=== PATIENT | female | born 1975 | race African-American/Black ===

== ENCOUNTER 2017-10-31 13:18 | Emergency (ER) | payer BC, MEDICAID ==
[~2017-10-31] VITALS: Ht 172.7 cm; Wt 81.2 kg
--- NOTE | 2017-10-31 13:46 | NUR ---
L SIDED FLANK PAIN SINCE YESTERDAY.
[2017-10-31] MEDS ORDERED: ACETAMINOPHEN ES 500 MG TABLET PO ONE (14:00)
[2017-10-31] MEDS ORDERED: IV NS 0.9% 1,000 ML BAG IV ONE (14:00)
[2017-10-31] MEDS ORDERED: DEXAMETHASONE SOD PHOSPHATE 10 MG/ML VIAL IV ONE (14:00)
[2017-10-31] MEDS ORDERED: KETOROLAC TROMETHAMINE INJ 30 MG/ML VIAL IV ONE (14:00)
[2017-10-31] MEDS ORDERED: PROCHLORPERAZINE EDISYLATE 10 MG/2 ML VIAL IVP ONE (14:00)
[2017-10-31 14:04] LABS: APPEARANCE,URINE Clear (CLEAR); BILIRUBIN,URINE Negative (NEGATIVE); BLOOD, URINE Negative Ery/uL (NEGATIVE); COLOR,URINE Yellow (YELLOW); KETONES,URINE Negative (NEGATIVE); LEUKOCYTE ESTERASE ,URINE Negative (NEGATIVE); NITRITE, URINE Negative (NEGATIVE); PROTEIN,URINE Negative (NEGATIVE); UGLUCOSE Negative (NEGATIVE); UROBILINOGEN,URINE 0.2 EU/dL (0.2)
[2017-10-31] MEDS ORDERED: KETOROLAC TROMETHAMINE 15 MG/ML VIAL ONE (14:19)
[2017-10-31] MEDS ORDERED: DEXAMETHASONE SOD PHOSPHATE 10 MG/ML VIAL ONE (14:19)
[2017-10-31] MEDS ORDERED: ACETAMINOPHEN ES 500 MG TABLET ONE (14:19)
[2017-10-31] MEDS ORDERED: PROCHLORPERAZINE EDISYLATE 10 MG/2 ML VIAL ONE (14:19)
[2017-10-31 14:21] LABS: BASOPHILS % (AUTO) 0.3 % (0.0-2.0); EOSINOPHILS # (AUTO) 0.1 /CMM (0.0-0.7); HEMATOCRIT 41 % (33-45); HEMOGLOBIN 13.5 g/dL (11.5-14.8); LYMPHOCYTES # (AUTO) 1.1 /CMM (0.8-4.8); LYMPHOCYTES % (AUTO) 22.5 % (20.0-44.0); MEAN CORPUSCULAR HEMOGLOBIN 30 PG (26.0-33.0); MEAN CORPUSCULAR HGB CONC 33 g/dl (31.0-36.0); MEAN CORPUSCULAR VOLUME 90 fL (82-100); MONOCYTES # (AUTO) 0.5 /CMM (0.1-1.30); MONOCYTES % (AUTO) 9.6 % (2.0-12.0); NEUTROPHILS # (AUTO) 3.2 /CMM (1.8-8.9); NEUTROPHILS % (AUTO) 65.6 % (43.0-81.0); PLATELET COUNT (AUTO) 166 /CMM (150-450); RDW COEFFICIENT OF VARIATION 16.6 (11.5-15.0); RED BLOOD CELL COUNT(AUTO) 4.56 MIL/uL (4.0-5.2); WHITE BLOOD COUNT (AUTO) 4.9 K/uL (4.3-11.0)
[2017-10-31 14:35] LABS: CALCIUM, SERUM 8.8 mg/dL (8.5-10.1); CREATININE 0.8 mg/dL (0.6-1.3); POTASSIUM 4.5 mmol/L (3.5-5.1)
[2017-10-31 14:41] LABS: ALBUMIN 3.5 g/dL (3.4-5.0); BILIRUBIN,TOTAL 0.2 mg/dL (0.2-1.0); TOTAL PROTEIN, SERUM 6.9 g/dL (6.4-8.2)
--- NOTE | 2017-10-31 15:45 | NUR ---
IV removed. Catheter intact and site benign. Pressure and 4x4 applied to site. No bleeding noted.
--- NOTE | 2017-10-31 15:45 | NUR ---
Patient discharged to home in stable condition. Written and verbal after care instructions given. Patient verbalizes understanding of instruction.
[2017-10-31 15:46] VITALS: BP 97/52
== END 2017-10-31 16:23 | disposition home or self-care (01) ==
LOC: ER 13:19
DX: G43.909 Migraine, unspecified, not intractable, without status migrainosus (principal); R10.9 Unspecified abdominal pain; F41.9 Anxiety disorder, unspecified; Z90.710 Acquired absence of both cervix and uterus
CPT/HCPCS: 36415; 80048; 80076; 81001; 83690; 85025; 96361; 96374; 96375; 99284; A4606; J0780; J1100; J1885; J7030; Z7610; 81000-TC

== ENCOUNTER 2017-12-13 16:45 | Emergency (ER) | payer BC, MEDICAID ==
[~2017-12-13] VITALS: Ht 165.1 cm; Wt 613.7 kg
[2017-12-13] MEDS ORDERED: PREDNISONE 20 MG TABLET (16:54)
[2017-12-13] MEDS ORDERED: VIRTUSSIN AC (16:54)
[2017-12-13] MEDS ORDERED: HYDROCO/APAP TAB 5-325MG (16:54)
[2017-12-13] MEDS ORDERED: FLUTICASONE SPR 50MCG (16:54)
[2017-12-13] MEDS ORDERED: QUETIAPINE 25 MG (16:54)
[2017-12-13] MEDS ORDERED: HYDROXYZINE 50 MG (16:54)
[2017-12-13] MEDS ORDERED: TOPAMAX 100 MG (16:54)
[2017-12-13] MEDS ORDERED: MORPHINE SULFATE INJ 2 MG/ML DISP.SYRIN IV ONE (17:30)
[2017-12-13] MEDS ORDERED: IV NS 0.9% 1,000 ML IV ONE (17:30)
--- NOTE | 2017-12-13 17:30 | NUR ---
PT TO ED ROOM 03. MIGRAINE HEADACHE. A/A/O. CHANGED TO GOWN. SIDE RAISL UP. HOB ELEVATED. CONNECTED TO MONITOR. AWAITING EVALUATION BY ER PROVIDER.
[2017-12-13] MEDS ORDERED: MORPHINE SULFATE INJ 4 MG/ML DISP.SYRIN ONE (17:41)
[2017-12-13] MEDS ORDERED: METOCLOPRAMIDE HCL 10 MG/2 ML VIAL ONE (17:41)
[2017-12-13] MEDS: METOCLOPRAMIDE HCL 10 MG/2 ML VIAL IV ONE ×2 (17:45→17:46)
--- NOTE | 2017-12-13 18:33 | NUR ---
Patient is resting comfortably in bed with eyes closed. Easily aroused. VSS
[2017-12-13] MEDS ORDERED: HYDROMORPHONE 1 MG/1 ML DISP.SYRIN IV ONE (19:00)
[2017-12-13] MEDS ORDERED: HYDROMORPHONE INJ 0.5 MG/0.5 ML SYRINGE ONE (19:06)
--- NOTE | 2017-12-13 19:19 | NUR ---
RECEIVED REPORT FROM LILI CHEN FOR JOSIAS
--- NOTE | 2017-12-13 20:17 | NUR ---
IV removed. Catheter intact and site benign. Pressure and 4x4 applied to site. No bleeding noted. Patient discharged to home in stable condition. Written and verbal after care instructions given. Patient verbalizes understanding of instruction. ambulatory with a steady gait
[2017-12-13 20:18] VITALS: BP 116/68
== END 2017-12-13 20:18 | disposition home or self-care (01) ==
LOC: ER 16:46
DX: G43.909 Migraine, unspecified, not intractable, without status migrainosus (principal); F41.9 Anxiety disorder, unspecified; G89.29 Other chronic pain; Z90.710 Acquired absence of both cervix and uterus
CPT/HCPCS: A4606; J2270; J2765; J7030; Z7610

== ENCOUNTER 2018-09-06 10:36 | Inpatient (IN) | payer BC, OTHER ==
[~2018-09-06] VITALS: Ht 165.1 cm; Wt 97.5 kg
[~2018-09-06 10:36] MED LIST: FLUTICASONE SPR 50MCG; HYDROCO/APAP TAB 5-325MG; HYDROXYZINE 50 MG; PREDNISONE 20 MG TABLET; QUETIAPINE 25 MG; TOPAMAX 100 MG; VIRTUSSIN AC
[2018-09-06] MEDS ORDERED: LORAZEPAM 1 MG TABLET ONE (10:48)
[2018-09-06] MEDS ORDERED: IBUPROFEN 400 MG TABLET ONE (10:48)
--- NOTE | 2018-09-06 10:50 | NUR ---
PT BIB A, "HAD A SEIZURE AT WORK". HX OF SEIZURES VERBALIZED BY PT. AOX4, NO ACUTE DISTRESS AT THIS TIME. PT TALKTIVE WITH STAFF. NO SOB/PAIN NOTED. WILL CONTINUE TO MONITOR.
[2018-09-06] MEDS ORDERED: IBUPROFEN 400 MG TABLET PO ONE (11:00)
[2018-09-06] MEDS ORDERED: LORAZEPAM 1 MG TABLET PO ONE (11:00)
--- NOTE | 2018-09-06 11:05 | NUR ---
WITNESSED ABSENCE SEIZURE. PT WAS TALKING TO STAFF AND BECAME UNRESPONSIVE FOR ABOUT 30 SECONDS, NOW APPEARS POSTICTAL. IV LINE ESTABLISHED AND DR DURAN REASSESSED HER AT THE BEDSIDE.
--- NOTE | 2018-09-06 11:15 | NUR ---
PER PT REQUEST, NOTIFIED BOYFRIEND MONIK THAT PT IS IN ER. HE STATES HE WILL COME VISIT.
[2018-09-06] MEDS ORDERED: KEPPRA 1000 MG in IV NS 100 ML IV ONE (11:30)
[2018-09-06] MEDS ORDERED: IV NS 0.9% 1,000 ML BAG IV ONE (11:30)
[2018-09-06 11:34] LABS: BASOPHILS % (AUTO) 0.2 % (0.0-2.0); EOSINOPHILS % (AUTO) 4.1 % (0.0-6.0); HEMATOCRIT 36 % (33-45); LYMPHOCYTES # (AUTO) 1.3 /CMM (0.8-4.8); LYMPHOCYTES % (AUTO) 23.8 % (20.0-44.0); MEAN CORPUSCULAR HGB CONC 33 g/dl (31.0-36.0); MEAN CORPUSCULAR VOLUME 93 fL (82-100); MONOCYTES # (AUTO) 0.6 /CMM (0.1-1.30); MONOCYTES % (AUTO) 10.6 % (2.0-12.0); NEUTROPHILS # (AUTO) 3.2 /CMM (1.8-8.9); NEUTROPHILS % (AUTO) 61.3 % (43.0-81.0); PLATELET COUNT (AUTO) 203 /CMM (150-450); WHITE BLOOD COUNT (AUTO) 5.3 K/uL (4.3-11.0)
[2018-09-06 11:46] LABS: CALCIUM, SERUM 8.3 mg/dL (8.5-10.1); CARBON DIOXIDE 29 mmol/L (21-32); CHLORIDE 111 mmol/L (98-107); CREATININE 0.8 mg/dL (0.6-1.3); GLUCOSE 89 mg/dL (74-106); POTASSIUM 4.4 mmol/L (3.5-5.1); SODIUM SERUM 144 mmol/L (136-145); UREA NITROGEN, BLOOD 14 mg/dL (7-18)
--- NOTE | 2018-09-06 11:46 | NUR ---
PT TRANSPORTED FOR CT SCAN.
[2018-09-06 11:47] LABS: ALCOHOL, BLOOD < 3 mg/dL (0-0)
[2018-09-06] MEDS ORDERED: IBUP-1955 PO (12:15)
[2018-09-06] MEDS ORDERED: BUSP15TA3 PO (12:15)
[2018-09-06] MEDS ORDERED: CHOL-9 PO (12:15)
[2018-09-06] MEDS ORDERED: TRAZ-214 PO (12:15)
[2018-09-06] MEDS ORDERED: HYDR25TA4 PO (12:15)
[2018-09-06] MEDS ORDERED: AMLO10TA6 PO (12:15)
[2018-09-06] MEDS ORDERED: ACET-2605 PO (12:15)
[2018-09-06] MEDS ORDERED: TOPI100T PO (12:15)
[2018-09-06] MEDS ORDERED: DULO60CA45 PO (12:16)
--- NOTE | 2018-09-06 12:51 | NUR ---
PT REPORTS PAIN AT IV SITE. NO REDNESS NOTED, HOWEVER THE LOCALIZED AREA IS SLIGHTLY SWOLLEN. PAIN UPON SALINER FLUSH. ONLY IV NS WAS INFUSING AT THE TIME THAT PAIN STARTED. WARM COMPRESS APPLIED AND IV REMOVED.
[2018-09-06] MEDS ORDERED: LORAZEPAM INJ 2 MG/ML VIAL ONE (12:59)
[2018-09-06] MEDS ORDERED: LORAZEPAM INJ 2 MG/ML VIAL IV STA (13:02)
--- NOTE | 2018-09-06 13:26 | NUR ---
PAGED LAURNE GRIFFIN FOR ADMIT - VEHICLE CONTROLS ENGINEER GALILEO PIKE
--- NOTE | 2018-09-06 13:55 | NUR ---
REPORT GIVEN TO NEHA PEARSON FOR ADMISSION
--- NOTE | 2018-09-06 14:20 | NUR ---
[facility] VIA ACLS PROTOCOL
[2018-09-06 15:00] VITALS: BP 170/92
[2018-09-06] MEDS ORDERED: ONDANSETRON HCL/PF 4 MG/2 ML VIAL IVP PRN (16:30)
[2018-09-06] MEDS ORDERED: TRAZODONE 50 MG TABLET PO PRN (16:30)
[2018-09-06] MEDS ORDERED: ZOLPIDEM TARTRATE 5 MG TABLET PO PRN (16:30)
[2018-09-06] MEDS ORDERED: Z GUARD REMEDY 2 OZ OINT TP PRN (16:30)
[2018-09-06] MEDS ORDERED: AZITHROMYCIN 250 MG TABLET PO ONE (17:00)
[2018-09-06] MEDS ORDERED: diphenhydrAMINE HCL 50 MG/ML VIAL IV PRN (17:00)
[2018-09-06] MEDS ORDERED: DEXAMETHASONE SOD PHOSPHATE 10 MG/ML VIAL IV ONE (17:00)
[2018-09-06] MEDS: IV NS 0.9% 1,000 ML IV PRN (17:05)
[2018-09-06] MEDS: diphenhydrAMINE HCL 25 MG CAPSULE PO PRN (17:39)
[2018-09-06] MEDS: busPIRone 5 MG TABLET PO SCH (17:39)
[2018-09-06] MEDS: MORPHINE SULFATE INJ 4 MG/ML DISP.SYRIN IV PRN (17:40)
--- NOTE | 2018-09-06 19:00 | NUR ---
RN NOTE RECEIVED PT AT 1430 ON BED AOX3, CO HEADACHE 08/28, SLEEPY, BP ELEVATED GALILEO PIKE NOTIFIED. IV INTACT AND PATENT IN LAC 20 G, ON TELEMETRY SR 65. CALL LIGHT WITHIN REACH, SAFETY MEASURES IN PLACE. SPOKE WITH GALILEO PIKE REGARDING PAIN MANAGEMENT AND ELEVATED BP. PER GALILEO PIKE TO CONTROL HEADACHE WHICH SHOULD ADDRESS THE BP WELL. WILL CARRY OUT ORDERS AND MONITOR PT CLOSELY.
[2018-09-06] MEDS: ACETAMINOPHEN 325 MG TABLET PO PRN (19:13)
[2018-09-06 20:00] VITALS: BP 146/83
--- NOTE | 2018-09-06 20:00 | NUR ---
RN INITIAL NOTES RECEIVED PT IN BED. PATIENT A/A/O X4. ON TELE W/ SINUS RHYTHM, HR 89. RIGHT WRIST IV, INTACT & PATENT W/ DRESSING CDI & IVF INFUSING ORDERED. PT C/O FOR HEADACHE PAIN 06/28. ALL SAFETY MEASURES MAINTAINED, W/ BED ALARM ON. CALL LIGHT WITH IN REACH. WILL CONT TO MONITOR.
[2018-09-06 20:13] LABS: APPEARANCE,URINE CLEAR (CLEAR); BILIRUBIN,URINE NEGATIVE (NEGATIVE); BLOOD, URINE NEGATIVE Ery/uL (NEGATIVE); COLOR,URINE YELLOW (YELLOW); KETONES,URINE NEGATIVE (NEGATIVE); LEUKOCYTE ESTERASE ,URINE NEGATIVE (NEGATIVE); NITRITE, URINE NEGATIVE (NEGATIVE); PROTEIN,URINE NEGATIVE (NEGATIVE); UGLUCOSE NEGATIVE (NEGATIVE); UROBILINOGEN,URINE 0.2 EU/dL (0.2)
[2018-09-06] MEDS: TOPIRAMATE 100 MG TABLET PO SCH (21:25)
[2018-09-06] MEDS: LEVETIRACETAM SOL (5 ML) 100 MG/ML UDC PO SCH (21:25)
--- NOTE | 2018-09-06 22:15 | NUR ---
RN NOTES PT STATED THAT SHE FEELS LIKE SHE IS ABOUT TO HAVE A SEIZURE. MD TYLER NOTIFIED. ONE TIME DOSE OF ATIVAN ORDERED AND GIVEN. PT MOVED TO ANOTHER ROOM PER HER REQUEST FOR QUITE AND COMFORT. PAIN MEDICATION GIVEN ORDERED FOR HEADACHE PAIN. WILL CONT TO CLOSELY MONITOR.
[2018-09-06] MEDS ORDERED: LORAZEPAM INJ 2 MG/ML VIAL IV ONE (22:30)
--- NOTE | 2018-09-06 23:18 | NUR ---
Patient lives locally independently. 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 Her pcp is Dr. Kelsey of [facility] . She plan to return home once d/c Addendum: 09/06/18 at 2319 by NIEVES FRAZIER RN Amended: Links added.
[2018-09-07] VITALS (7 sets, daily range): BP systolic 117–147; BP diastolic 63–85
[2018-09-07] MEDS: diphenhydrAMINE HCL 25 MG CAPSULE PO PRN (03:30)
[2018-09-07] MEDS: IBUPROFEN 600 MG TABLET PO PRN ×3 (03:30→20:01)
[2018-09-07 07:06] LABS: HEMATOCRIT 38 % (33-45); HEMOGLOBIN 12.3 g/dL (11.5-14.8); LYMPHOCYTES # (AUTO) 0.7 /CMM (0.8-4.8); LYMPHOCYTES % (AUTO) 9.8 % (20.0-44.0); MEAN CORPUSCULAR HGB CONC 33 g/dl (31.0-36.0); MEAN CORPUSCULAR VOLUME 97 fL (82-100); MONOCYTES # (AUTO) 0.2 /CMM (0.1-1.30); MONOCYTES % (AUTO) 2.7 % (2.0-12.0); NEUTROPHILS % (AUTO) 87.5 % (43.0-81.0); PLATELET COUNT (AUTO) 191 /CMM (150-450); RED BLOOD CELL COUNT(AUTO) 3.92 MIL/uL (4.0-5.2); WHITE BLOOD COUNT (AUTO) 6.8 K/uL (4.3-11.0)
--- NOTE | 2018-09-07 07:10 | NUR ---
RN CLOSING NOTES NO ACUTE CHANGES WITHIN THE SHIFT. ALL NURSING NEEDS ATTENDED AND MET. ASPIRATION AND SAFETY MEASURES IN PLACE AT ALL TIMES. CALL LIGHT WITHIN REACH AT ALL TIMES. ALL MEDS GIVEN ORDERED. WILL ENDORSE TO AM RN.
--- NOTE | 2018-09-07 07:20 | NUR ---
RANDALL RN INITIAL NOTES RECEIVED REPORT FROM PM NURSE.PT IN BED. PATIENT A/A/O X4. ON TELE W/ SINUS RHYTHM, HR 63 . RIGHT WRIST IV, INTACT & PATENT W/ DRESSING CDI & IVF INFUSING ORDERED.NO SOB NO DISTRESS NOTED.ON RA. ALL SAFETY MEASURES MAINTAINED, W/ BED ALARM ON. CALL LIGHT WITH IN REACH. WILL CONT TO MONITOR.
[2018-09-07 07:24] LABS: CALCIUM, SERUM 8.2 mg/dL (8.5-10.1); MAGNESIUM 1.8 mg/dL (1.8-2.4); PHOSPHORUS 4.3 mg/dL (2.5-4.9); POTASSIUM 3.9 mmol/L (3.5-5.1)
[2018-09-07] MEDS: busPIRone 5 MG TABLET PO SCH ×2 (08:08→17:00)
[2018-09-07] MEDS: LEVETIRACETAM SOL (5 ML) 100 MG/ML UDC PO SCH ×2 (08:08→21:13)
[2018-09-07] MEDS: DULOXETINE HCL 30 MG CAPSULE.DR PO SCH (08:08)
[2018-09-07] MEDS: AMLODIPINE BESYLATE 10 MG TABLET PO SCH (08:09)
[2018-09-07] MEDS: HYDROCHLOROTHIAZIDE 25 MG TABLET PO SCH (08:10)
[2018-09-07] MEDS: MORPHINE SULFATE INJ 4 MG/ML DISP.SYRIN IV PRN ×2 (08:11→15:35)
[2018-09-07] MEDS: VITAMIN D 5000 UNIT PO SCH (09:36)
[2018-09-07] MEDS ORDERED: LORAZEPAM 1 MG TABLET PO ONE (11:00)
--- NOTE | 2018-09-07 13:00 | NUR ---
RN NOTES PATIENT SAID THAT SHE FEELS SHE IS GOING TO GET SEIZURE.LETHARGIC AND FEELING AURA. AWARE.GOT NEW ORDER FOR ATIVANX1.WILL CONTINUE TO MONITOR.
[2018-09-07] MEDS: IV NS 0.9% 1,000 ML IV PRN (15:35)
[2018-09-07] MEDS ORDERED: AZITHROMYCIN 250 MG TABLET PO SCH (17:00)
[2018-09-07] MEDS: AZITHROMYCIN 250 MG TABLET PO SCH (17:00)
--- NOTE | 2018-09-07 17:00 | NUR ---
IT SOFTWARE DEVELOPER NOTES SEEN BY UPDATED ABOUT PATIENT CONDITION.REQUESTED FOR PRN MEDS.GOT NEW ORDERS.
[2018-09-07] MEDS: LORAZEPAM 1 MG TABLET PO PRN (19:10)
--- NOTE | 2018-09-07 19:24 | NUR ---
RN CLOSING NOTES PT IN BED. PATIENT A/A/O X4. ON TELE W/ SINUS RHYTHM, HR 68.RIGHT WRIST IV, INTACT & PATENT W/ DRESSING CDI .NO SOB NO DISTRESS NOTED.ON RA. PATIENT SAID THAT SHE FEELING THAT SHE IS GOING TO GET SEIZURE,GETTING AURA,LETHARGIC.PRN ATIVAN GIVEN.REPORT GIVEN TO PM NURSE AT BEDSIDE.ENDORSED TO PM NURSE FOR JOSIAS.ALL SAFETY MEASURES MAINTAINED, W/ BED ALARM ON. CALL LIGHT WITH IN REACH.
--- NOTE | 2018-09-07 20:30 | NUR ---
RN NOTES RECEIVED IN BED, LETHARGIC, RESPONDING TO SIMPLE QUESTIONS, PER PATIENT HAVING SILENT SEIZURE, SEIZURE PRECAUTION MAINTAINED, KEPT HOB ELEVATED, STAYED WITH PATIENT. AM NURSE GAVE ATIVAN PO, ABLE TO SWALLOW, AFTER SEIZURE, PATIENT CAME BACK TO BASELINE LOC, VS WNL, PER PATIENT, STRENGTH TO UPPER EXTREMITIES CAME BACK, ASSISTED TO BSC WITH CAUTION, VOIDING SPONTANEOUSLY, WILL CONTINUE TO MONITOR, CALL LIGHT WITHIN REACH.
[2018-09-07] MEDS: TOPIRAMATE 100 MG TABLET PO SCH (21:13)
[2018-09-08] VITALS: BP 126/79
[2018-09-08 04:00] VITALS: BP_SYST 126; BP_SYST 135; BP_DIAS 78; BP_DIAS 79
[2018-09-08] MEDS: IBUPROFEN 600 MG TABLET PO PRN ×2 (04:03→13:20)
[2018-09-08 06:37] LABS: BASOPHILS % (AUTO) 0.2 % (0.0-2.0); EOSINOPHILS % (AUTO) 0.8 % (0.0-6.0); HEMATOCRIT 36 % (33-45); HEMOGLOBIN 11.7 g/dL (11.5-14.8); LYMPHOCYTES # (AUTO) 2.4 /CMM (0.8-4.8); LYMPHOCYTES % (AUTO) 31.4 % (20.0-44.0); MEAN CORPUSCULAR HGB CONC 33 g/dl (31.0-36.0); MEAN CORPUSCULAR VOLUME 96 fL (82-100); MONOCYTES # (AUTO) 0.5 /CMM (0.1-1.30); MONOCYTES % (AUTO) 6.3 % (2.0-12.0); NEUTROPHILS # (AUTO) 4.6 /CMM (1.8-8.9); NEUTROPHILS % (AUTO) 61.3 % (43.0-81.0); PLATELET COUNT (AUTO) 199 /CMM (150-450); WHITE BLOOD COUNT (AUTO) 7.6 K/uL (4.3-11.0)
--- NOTE | 2018-09-08 06:57 | NUR ---
RN NOTES PATIENT IS ASLEEP AT THIS TIME, NOT IN APPARENT DISTRESS, PER BOYFRIEND AT THE BEDSIDE, NO COMPLAIN OF HEADACHE. PATIENT REPORTED HAVING SILENT SEIZURE X1 DURING THE NIGHT, COMPLAINED OF HEADACHE, GIVEN MOTRIN WITH GOOD RELIEF. VOIDING USING BEDSIDE COMMODE WITH ASSIST. AMBULATED IN THE HALLWAY DURING PM SHIFT.
[2018-09-08 07:05] LABS: ALBUMIN 2.9 g/dL (3.4-5.0); BILIRUBIN,TOTAL 0.2 mg/dL (0.2-1.0); CALCIUM, SERUM 8.3 mg/dL (8.5-10.1); CREATININE 0.9 mg/dL (0.6-1.3); POTASSIUM 3.5 mmol/L (3.5-5.1)
--- NOTE | 2018-09-08 07:20 | NUR ---
RN OPENING NOTES RECEIVED PATIENT IN BED ASLEEP, EASILY AROUSES. A/OX4. ON BEDSIDE. NO ACUTE DISTRESS, NO SOB. DENIED PAIN OR DISCOMFORT. IV SITE INTACT AND PATENT. SEIZURE PRECAUTIONS INITIATED. KEPT PATIENT SAFE AND COMFORTABLE. BED IN LOW/LOCKED POSITION, SIDERAILS UPX2, CALL LIGHT IN REACH. WILL CONTINUE TO MONIOTR ACCORDINGLY.
[2018-09-08 08:00] VITALS: BP 120/75
[2018-09-08] MEDS: LORAZEPAM 1 MG TABLET PO PRN (08:45)
[2018-09-08] MEDS: VITAMIN D 5000 UNIT PO SCH (08:55)
[2018-09-08] MEDS: busPIRone 5 MG TABLET PO SCH ×2 (08:58→18:25)
[2018-09-08] MEDS: HYDROCHLOROTHIAZIDE 25 MG TABLET PO SCH (08:58)
[2018-09-08] MEDS: LEVETIRACETAM SOL (5 ML) 100 MG/ML UDC PO SCH (08:59)
[2018-09-08] MEDS: AMLODIPINE BESYLATE 10 MG TABLET PO SCH (08:59)
[2018-09-08] MEDS: DULOXETINE HCL 30 MG CAPSULE.DR PO SCH (08:59)
[2018-09-08] MEDS: ACETAMINOPHEN 325 MG TABLET PO PRN ×2 (09:00→18:26)
[2018-09-08] MEDS ORDERED: clonazePAM 1 MG TABLET PO PRN (10:30)
[2018-09-08 16:00] VITALS: BP 128/76
[2018-09-08] MEDS: AZITHROMYCIN 250 MG TABLET PO SCH (18:27)
--- NOTE | 2018-09-08 19:20 | NUR ---
RN M/S NOTE PATIENT IS AOX3, SPEECH CLEAR, ABLE TO MAKE NEEDS KNOWN, ON ROOM AIR, DENIES ANY CARDIAC OR RESPIRATORY DISTRESS, DENIES PAIN, 22G R WRIST, PATENT FLUSHING WELL, SITE CDI, SKIN KEPT CLEAN AND DRY, SEIZURE PRECAUTIONS MAINTAINED, SAFETY MAINTAINED AT ALL TIMES, BED IN LOW LOCKED POSITION, CALL LIGHT WITHIN REACH, WILL CONTINUE TO MONITOR FOR ANY CHANGES IN CONDITION
--- NOTE | 2018-09-08 19:30 | NUR ---
RN CLOSING NOTES PATIENT IN STABLE CONDITION. ALL NEEDS ATTENDED AND PROVIDED. ALL DUE MEDICATIONS GIVEN ORDERED. KEPT PATIENT SAFE AND COMFORTABLE. SEIZURE PRECAUTIONS IN PLACE. BED IN LOW/LOCKED POSITION, PADDED SIDERAILS UPX2, CALL LIGHT IN REACH. ENDORSED TO NIGHT RN FOR JOSIAS.
[2018-09-08 20:00] VITALS: BP 118/72
[2018-09-08] MEDS: TOPIRAMATE 100 MG TABLET PO SCH (21:07)
[2018-09-09 04:00] VITALS: BP 110/70
--- NOTE | 2018-09-09 05:45 | NUR ---
PROFESSOR OF FORESTRY NOTE PATIENT CALLED TO NURSING STATION STATING SHE IS CURRENTLY HAVING A SEIZURE UPON ASSESSMENT, PT WAS LAYING IN BED, ALERT, ABLE TO FOLLOW COMMANDS, WILL CONTINUE TO MONITOR, SAFETY MAINTAINED, CALL LIGHT WITHIN REACH.
[2018-09-09 06:19] LABS: BASOPHILS % (AUTO) 0.3 % (0.0-2.0); EOSINOPHILS % (AUTO) 3.3 % (0.0-6.0); HEMATOCRIT 39 % (33-45); HEMOGLOBIN 12.8 g/dL (11.5-14.8); MEAN CORPUSCULAR HGB CONC 33 g/dl (31.0-36.0); MEAN CORPUSCULAR VOLUME 95 fL (82-100); MONOCYTES # (AUTO) 0.3 /CMM (0.1-1.30); NEUTROPHILS # (AUTO) 3.2 /CMM (1.8-8.9); NEUTROPHILS % (AUTO) 55.4 % (43.0-81.0); PLATELET COUNT (AUTO) 202 /CMM (150-450); RED BLOOD CELL COUNT(AUTO) 4.12 MIL/uL (4.0-5.2); WHITE BLOOD COUNT (AUTO) 5.8 K/uL (4.3-11.0)
--- NOTE | 2018-09-09 07:20 | NUR ---
MOLDING MACHINE TENDER OPENING NOTES RECEIVED PT ON BED.PT IS SLEEPY.ALERT/ORIENTED X3.ON TELE HR IS 64 WITH SINUS RHYTHM.NO SOB AND ACUTE DISTRESS NOTED.SALINE LOCK IS ON RIGHT WRIST G22,SITE IS CLEAN,DRY AND INTACT.SAFETY IS MAINTAINED AT ALL TIMES.BED IS IN LOW POSITION AND LOCKED.CALL LIGHT IS WITHIN REACH.WILL CONTINUE TO MONITOR THE PT CLOSELY FOR SIGNS OF SEIZURE.
[2018-09-09 08:00] VITALS: BP_SYST 106; BP_SYST 124; BP_DIAS 67; BP_DIAS 83
[2018-09-09] MEDS: AMLODIPINE BESYLATE 10 MG TABLET PO SCH (09:05)
[2018-09-09] MEDS: DULOXETINE HCL 30 MG CAPSULE.DR PO SCH (09:06)
[2018-09-09] MEDS: HYDROCHLOROTHIAZIDE 25 MG TABLET PO SCH (09:06)
[2018-09-09] MEDS: busPIRone 5 MG TABLET PO SCH ×2 (09:07→17:06)
[2018-09-09] MEDS: ACETAMINOPHEN 325 MG TABLET PO PRN (09:07)
[2018-09-09] MEDS: VITAMIN D 5000 UNIT PO SCH (09:43)
[2018-09-09] MEDS ORDERED: CLON1TAB PO (11:22)
[2018-09-09] MEDS ORDERED: NAPR-1164 PO (11:22)
[2018-09-09] MEDS ORDERED: KETOROLAC TROMETHAMINE INJ 30 MG/ML VIAL IV ONE (11:30)
[2018-09-09 12:00] VITALS: BP 137/99
[2018-09-09 16:00] VITALS: BP 133/92
[2018-09-09] MEDS: AZITHROMYCIN 250 MG TABLET PO SCH (17:06)
--- NOTE | 2018-09-09 19:00 | NUR ---
MS RN NOTES EXPLAINED ALL THE DISCHARGE PROCEDURES AND MEDICINES TO THE PT.PT IS WAITING FOR THE FAMILY TO CERTIFIED ATHLETIC TRAINER.IV LINE ON RIGHT FA IS REMOVED.SKIN ASSESSMENT IS DONE AND IT IS INTACT.ALL THE BELONGINGS ARE GIVEN AND SIGNED BY THE PT.PT VERBALIZED SHE UNDERSTOOD ALL THE PROCEDURES OF DISCHARGE.
--- NOTE | 2018-09-09 19:10 | NUR ---
MS RN NOTES PT IS DISCHARGED TO HOME WITH BOYFRIEND AND GAVE DR PRESCRIPTION TO THE PT.PT IS STABLE AND WELL FOR THE DISCHARGE.
== END 2018-09-09 19:30 | disposition home or self-care (01) | DRG 101 ==
LOC: ER 10:40 → TELE-TD 12:58 → TELE1 09-07 12:12 → MEDSG1 09-08 10:45
PROVIDERS: ADMIT Nurse Practitioner Acute Care; ATTEND Nurse Practitioner Acute Care
DX: G40.209 Localization-related (focal) (partial) symptomatic epilepsy and epileptic syndromes with complex partial seizures, not intractable, without status epilepticus (principal); J06.9 Acute upper respiratory infection, unspecified; G89.4 Chronic pain syndrome; Z90.710 Acquired absence of both cervix and uterus; G43.919 Migraine, unspecified, intractable, without status migrainosus; Z82.0 Family history of epilepsy and other diseases of the nervous system; Z83.3 Family history of diabetes mellitus
CPT/HCPCS: 36415; 70450-TC; 71045-TC; 80048-TC; 80053-TC; 80061-TC; 80305; 81000-TC; 83735-TC; 84100-TC; 84703-TC; 85025-TC; 87081-TC; A4606; A6402; G0378; G0480; J1100; J1885; J1953; J2060; J2270; J7030; Q0163; Z7610